=== PATIENT | male | born 1950 | race Caucasian/White ===

== ENCOUNTER 2022-07-14 15:32 | Emergency (ER) | payer OTHER, SELFPAY ==
[2022-07-14 15:52] VITALS: PULSE 74; RESP 16; TEMP 36.6; O2SAT 98; BMI 32.1
--- NOTE | 2022-07-14 15:59 | DI.RAD.S_ITS ---
PROCEDURE: XR FINGER LT MIN 2V INDICATIONS: smashed in garage roller door TECHNIQUE: AP hand, 2 views of the 2 finger(s) acquired. COMPARISON: None. FINDINGS: Bones: There is an extra-articular fracture at the base of the 4th distal phalanx metadiaphysis. Soft tissues: No suspicious soft tissue calcifications. IMPRESSION: Extra-articular fracture at the base of the 4th distal phalanx metadiaphysis. Dictated by: Iraj Sutton M.D. on 07/14/2022 at 16:39 Approved by: Iraj Sutton M.D. on 07/14/2022 at 16:40
[2022-07-14] MEDS: ACETAMINOPHEN 325 MG TABLET 975 MG PO (20:06)
[2022-07-14] MEDS: IBUPROFEN 400 MG TABLET 800 MG PO (20:06)
[2022-07-14] MEDS: TET,DIPH,PERTUSS(ACELL),VAC/PF 0.5 ML SYRINGE IM (20:07)
[2022-07-14 20:14] VITALS: BP 184/109; PULSE 80; RESP 16; O2SAT 99
--- NOTE | 2022-07-14 22:21 | ED_ITS ---
HPI - Wound/Laceration General Chief Complaint: Wound/Laceration Stated Complaint: lt. slammed in door/laceration to lt. ring finger Time Seen by Provider: 07/14/22 21:54 Mode of arrival: Family Vehicle History of Present Illness HPI narrative: Patient is a 71-year-old male who presents with left ring finger injury while at work. It got caught in a garage door. He is not on blood thinners. Tetanus is not up to date. No numbness tingling or weakness. Obvious deformity with nail bed involvement. Related Data Home Medications Medication Instructions Recorded Confirmed multivitamin with minerals 1 tab PO DAILY 07/14/22 07/14/22 Previous Rx's Medication Instructions Recorded cephalexin 500 mg capsule 500 mg PO TID #21 caps 07/14/22 hydrocodone 5 mg-acetaminophen 325 1 tab PO Q6H PRN pain #10 tabs 07/14/22 mg tablet Allergies Allergy/AdvReac Type Severity Reaction Status Date / Time No Known Drug Allergies Allergy Verified 07/14/22 15:55 Review of Systems Review of Systems ROS Unobtainable: All systems reviewed & are unremarkable except as noted in HPI and below Patient History Social History Smoking Status: Never smoker Smoking Status: Never smoker Substance Use Type: does not use Exam Initial Vital Signs Initial Vital Signs: Vital Signs Temperature 97.8 F 07/14/22 15:52 Pulse Rate 74 07/14/22 15:52 Respiratory Rate 16 07/14/22 15:52 Pulse Oximetry 98 07/14/22 15:52 Oxygen Delivery Method Room Air 07/14/22 15:52 GENERAL: Well-appearing, well-nourished and in no acute distress. CARDIOVASCULAR: peripheral pulses in tact, cap refill <2 sec RESPIRATORY: No respiratory distress, speaks in full sentences without difficulty EXTREMITIES: Normal range of motion, no clubbing or edema. Neurovascularly intact. Left ring finger distal tip and nail has come out of nail bed some pulsating blood no obvious laceration distal tip nail, NEUROLOGICAL: Cranial nerves II through XII grossly intact. Normal gait and speech. SKIN: Warm, dry, no petechiae, no rashes or lesions. Procedures Laceration Repair Laceration 1: Site: hand (finger 4th) Side (If applicable): left Local Anesthetic: lidocaine 1% Amount of anesthesia used (mL): 5 Pre-repair: wound explored, irrigated extensively and deep structures in tact (nail bed involvement) Skin layer suture size: 4-0 (2) Subcutaneous layer closed with: vicryl Subcutaneous layer suture size: 5-0 Number of sutures: 2 Course Orders Ordered: Discontinued Medications Acetaminophen (Acetaminophen 325 Mg Tablet) 975 mg PO NOW ONE Stop: 07/14/22 19:50 Last Admin: 07/14/22 20:06 Dose: 975 mg Documented By: GARTH Hydrocodone Bitart/Acetaminophen (Hydrocodone/Acet 5/325 Prepack) 1 bottle MISC SEEINSTR ONE Stop: 07/14/22 22:28 Last Admin: 07/14/22 22:54 Dose: 1 bottle Documented By: DENI Cefazolin Sodium (Cephalexin 250 Mg Cap Prepack) 1 bottle MISC SEEINSTR ONE Stop: 07/14/22 22:28 Last Admin: 07/14/22 22:54 Dose: 1 bottle Documented By: DENI Diphtheria/Tetanus/Acell Pertussis (Tet,Diph,Pertuss(Acell),Vac/Pf 0.5 Ml Syringe) 0.5 ml IM .ONCE ONE Stop: 07/14/22 19:50 Last Admin: 07/14/22 20:07 Dose: 0.5 ml Documented By: GARTH Ibuprofen (Ibuprofen 400 Mg Tablet) 800 mg PO NOW ONE Stop: 07/14/22 19:50 Last Admin: 07/14/22 20:06 Dose: 800 mg Documented By: GARTH Lidocaine HCl (Lidocaine 1% (Pf) 2ml) 6 ml SUBCUT NOW ONE Stop: 07/14/22 21:55 Last Admin: 07/14/22 22:54 Dose: Not Given Documented By: DENI Vital Signs Vital signs: Vital Signs - 8 hr 07/14/22 22:56 Pulse Rate 71 Respiratory Rate 16 Blood Pressure 193/100 H Pulse Oximetry 95 Oxygen Delivery Method Room Air MDM - Wound/Laceration Imaging Data Extremity x-ray #1: Radiologist's Impression: PROCEDURE:? XR FINGER LT MIN 2V ? INDICATIONS:? smashed in garage roller door ? TECHNIQUE:? AP hand, 2 views of the 2 finger(s) acquired.? ? COMPARISON:? None. ? FINDINGS:? ? Bones:? There is an extra-articular fracture at the base of the 4th distal phalanx metadiaphysis. ? Soft tissues:? No suspicious soft tissue calcifications.? ? IMPRESSION:? Extra-articular fracture at the base of the 4th distal phalanx metadiaphysis. ? ? Dictated by: Iraj Sutton M.D. on 07/14/2022 at 16:39 ? ? Approved by: Iraj Sutton M.D. on 07/14/2022 at 16:40 ? MDM Narrative Medical decision making narrative: Patient is 71-year-old male left ring finger distal tip fracture and nail bed injury. Splint has been placed sutures placed. Dr. Isaac orthopedics has been called salted given patient's name patient is to follow-up. Discharge Plan Departure Patient Disposition: Home Clinical Impression: Laceration, Injury of nail bed of finger of left hand, Displaced fracture of phalanx of left ring finger Instructions: DI for Finger Fracture, DI for Nail Bed Injury Activity Restrictions/Additional Instructions: *You have been diagnosed with left 4th finger fracture and nail bed injury *What to do: Keep dressing on for at least 24 hours. Elevate ice. It will likely need intervention by Orthopedics *Continue to take medications as directed [place] 1 tablet every 6 hours if needed for severe pain Keflex 500 mg 3 times a day for 7 days *Follow up with your primary care provider in 2-3 days or call [phone] Dr. Isaac, please call her office tomorrow for an appointment *Return to ER if you should have increasing redness pain swelling or any new, worsening or concerning symptoms CONTROLLED SUBSTANCE DISCHARGE (Narcotoic/benzodiazepine/Flexeril/Phenergan) 1. You have been prescribed narcotic medications, it does have acetaminophen/Tylenol/paracetamol in it, DO NOT TAKE MORE THAN 4,00mg in 24 hours of Tylenol. TRAMADOL DOES NOT CONTAIN TYLENOL 2. Please understand that we cannot provide further refills of narcotics, benzodiazepines or controlled substances through the ED and her pain management will need to be through your provider. 3. While on these medications you cannot drive or operate heavy machinery. 4. You cannot sign legal documents or perform any duties such as this. 5. As long as you're taking opiate pain medications he should also be taking a stool softener such as Colace, Dulcolax, MiraLAX or prune juice, to help avoid constipation. Prescriptions: New cephalexin 500 mg capsule 500 mg PO TID Qty: 21 0RF hydrocodone-acetaminophen 5-325 mg tablet 1 tab PO Q6H PRN (Reason: pain) Qty: 10 0RF No Action All Purpose Multivitamin-Min Tablet 1 tab PO DAILY Referrals: Connie Isaac MD [Physician] - Stand Alone Forms: Patient Portal/API
[2022-07-14] MEDS: HYDROCODONE/ACET 5/325 PREPACK 1 BOTTLE MISC (22:54)
[2022-07-14] MEDS: cephALEXin 250 MG CAP PREPACK 1 BOTTLE MISC (22:54)
[2022-07-14 22:56] VITALS: BP 193/100; PULSE 71; RESP 16; O2SAT 95
== END 2022-07-14 23:00 | disposition home or self-care (01) ==
PROVIDERS: Emergency Provider Emergency Medicine
DX: S62.635A Displaced fracture of distal phalanx of left ring finger, initial encounter for closed fracture (principal); S61.215A Laceration without foreign body of left ring finger without damage to nail, initial encounter; W23.0XXA Caught, crushed, jammed, or pinched between moving objects, initial encounter; Z23 Encounter for immunization; Y99.0 Civilian activity done for income or pay
CPT/HCPCS: 12001; 73140; 90471; 99283; 99284; 90715